=== PATIENT | female | born 1980 | race Caucasian/White ===

== ENCOUNTER 2018-04-25 02:48 | Emergency (ER) | payer BC ==
[~2018-04-25] VITALS: Ht 157.5 cm; Wt 52.2 kg
[2018-04-25] MEDS ORDERED: IV NORMAL SALINE 1000ML BAG 1,000 ML IV SCH (03:15)
[2018-04-25 03:23] LABS: BASO % 0 % (0-3); EOS # 0.4 x10^3/uL (0.0-0.7); EOS % 7 % (0-3); HEMATOCRIT 43.7 % (36.0-47.0); LYMPH # 2.2 x10^3/uL (1.0-4.8); LYMPH % 38 % (24-48); MEAN CORPUSCULAR HEMOGLOBIN 31 pg (25-35); MEAN CORPUSCULAR HGB CONC 34 g/dL (31-37); MEAN CORPUSCULAR VOLUME 91 fL (79-100); MONO # 0.3 x10^3/uL (0.0-1.1); MONO % 6 % (0-9); NEUT # 2.9 x10^3uL (1.8-7.7); NEUT % 50 % (31-73); PLATELET COUNT 189 x10^3/uL (140-400); RED BLOOD COUNT 4.79 x10^6/uL (3.50-5.40); WHITE BLOOD COUNT 5.8 x10^3/uL (4.0-11.0)
[2018-04-25 03:24] LABS: BILIRUBIN,URINE NEGATIVE (NEG); CLARITY,URINE CLEAR; COLOR,URINE YELLOW; NITRITE,URINE NEGATIVE (NEG); PROTEIN,URINE NEGATIVE (NEG-TRACE); UROBILINOGEN,URINE 0.2 mg/dL (0.2 mg/dL)
[2018-04-25 03:30] LABS: BARBITURATES NEG (NEG); BENZODIAZEPINES NEG (NEG); CALCIUM 9.2 mg/dL (8.5-10.1); CANNABINOIDS NEG (NEG); COCAINE NEG (NEG); CREATININE 0.7 mg/dL (0.6-1.0); GFR 93.2; METHADONE NEG (NEG); OPIATES NEG (NEG); PHENCYCLIDINE NEG (NEG); POTASSIUM 3.3 mmol/L (3.5-5.1)
[2018-04-25 03:31] LABS: BACTERIA,URINE 0 /HPF (0-FEW); PROTHROMBIN TIME PATIENT 12.5 SEC (11.7-14.0); SQUAMOUS EPITHELIAL CELL,UR FEW /LPF; WBC,URINE 0 /HPF (0-4)
[2018-04-25 03:32] LABS: AMPHETAMINE/METHAMPHETAMINE NEG (NEG)
[2018-04-25 03:37] LABS: ACETAMIN < 2 mcg/ml (10-30); DIRECT BILIRUBIN 0.1 mg/dL (0.0-0.2); ETHANOL < 10 mg/dL (0-10); SALIC < 2.8 mg/dL (2.8-20.0); TOTAL BILIRUBIN 0.2 mg/dL (0.2-1.0); TOTAL PROTEIN 7.5 g/dL (6.4-8.2)
--- NOTE | 2018-04-25 03:52 | PHYS DOC ---
Past Medical History Past Medical History: Other Additional Past Medical Histor: [place] DISEASE Additional Past Surgical Histo: BREAST IMPLANTS, CHIN AND CHEEK IMPLANTS Alcohol Use: Rarely Drug Use: None Adult General Chief Complaint Chief Complaint: SUICDAL IDEATION HPI HPI Patient is a 37 year old female who presents with suicide attempt. Patient reports taking approximately 15 diphenhydramine tablets 25 mg each at approximately 1 AM this morning. Difficult to get an exact number because patient has an old bottle that at one point contained 600 capsules of diphenhydramine 25 mg. She did this as a suicide attempt. Denies any nausea or vomiting. Reports feeling sleepy.[] Review of Systems Review of Systems Constitutional: Denies fever or chills [] Eyes: Denies change in visual acuity, redness, or eye pain [] HENT: Denies nasal congestion or sore throat [] Respiratory: Denies cough or shortness of breath [] Cardiovascular: No chest pain or palpitations[] GI: Denies abdominal pain, nausea, vomiting, bloody stools or diarrhea [] : Denies dysuria or hematuria [] Musculoskeletal: Denies back pain or joint pain [] Integument: Denies rash or skin lesions [] Neurologic: Denies headache, focal weakness or sensory changes [] Endocrine: Denies polyuria or polydipsia [] All other systems were reviewed and found to be within normal limits, except as documented in this note. Current Medications Current Medications Current Medications Medications (Trade) Dose Ordered Sig/Rafaela Start Time Stop Time Status Last Admin Dose Admin Sodium Chloride 1,000 ml @ 1,000 mls/hr Q1H 04/25/18 03:15 04/25/18 04:14 DC 04/25/18 03:15 1,000 MLS/HR Allergies Allergies Allergies Coded Allergies Type Severity Reaction Last Updated Verified acetaminophen Allergy Unknown 04/25/18 Yes ketorolac Allergy Unknown 04/25/18 Yes propoxyphene Allergy Unknown 04/25/18 Yes Physical Exam Physical Exam Constitutional: Well developed, well nourished, no acute distress, non-toxic appearance. [] HENT: Normocephalic, atraumatic, bilateral external ears normal, oropharynx moist, no oral exudates, nose normal. [] Eyes: PERRLA, slightly dilated pupils, EOMI, conjunctiva normal, no discharge. [ ] Neck: Normal range of motion, no tenderness, supple, no stridor. [] Cardiovascular:Heart rate regular rhythm, no murmur [] Lungs & Thorax: Bilateral breath sounds clear to auscultation [] Abdomen: Bowel sounds normal, soft, no tenderness, no masses, no pulsatile masses. [] Skin: Warm, dry, no erythema, no rash. [] Back: No tenderness, no CVA tenderness. [] Extremities: No tenderness, no cyanosis, no clubbing, ROM intact, no edema. [] Neurologic: Alert and oriented X 3, normal motor function, normal sensory function, no focal deficits noted. [] Psychologic: Affect flat, judgement poor, mood normal. [] Current Patient Data Vital Signs Vital Signs Date Time Temp Pulse Resp B/P (MAP) Pulse Ox O2 Delivery O2 Flow Rate FiO2 04/25/18 08:00 68 127/86 (100) 98 Room Air 04/25/18 06:30 20 04/25/18 03:04 97.8 97.8 Lab Values Laboratory Tests Test 04/25/18 03:00 04/25/18 03:07 White Blood Count 5.8 x10^3/uL (4.0-11.0) Red Blood Count 4.79 x10^6/uL (3.50-5.40) Hemoglobin 15.0 g/dL (12.0-15.5) Hematocrit 43.7 % (36.0-47.0) Mean Corpuscular Volume 91 fL (79-100) Mean Corpuscular Hemoglobin 31 pg (25-35) Mean Corpuscular Hemoglobin Concent 34 g/dL (31-37) Red Cell Distribution Width 16.0 % (11.5-14.5) H Platelet Count 189 x10^3/uL (140-400) Neutrophils (%) (Auto) 50 % (31-73) Lymphocytes (%) (Auto) 38 % (24-48) Monocytes (%) (Auto) 6 % (0-9) Eosinophils (%) (Auto) 7 % (0-3) H Basophils (%) (Auto) 0 % (0-3) Neutrophils # (Auto) 2.9 x10^3uL (1.8-7.7) Lymphocytes # (Auto) 2.2 x10^3/uL (1.0-4.8) Monocytes # (Auto) 0.3 x10^3/uL (0.0-1.1) Eosinophils # (Auto) 0.4 x10^3/uL (0.0-0.7) Basophils # (Auto) 0.0 x10^3/uL (0.0-0.2) Prothrombin Time 12.5 SEC (11.7-14.0) Prothrombin Time INR 1.0 (0.8-1.1) Urine Collection Type Unknown Urine Color Yellow Urine Clarity Clear Urine pH 7.0 Urine Specific [place] <=1.005 Urine Protein Negative mg/dL (NEG-TRACE) Urine Glucose (UA) Negative mg/dL (NEG) Urine Ketones (Stick) Negative mg/dL (NEG) Urine Blood Large (NEG) Urine Nitrite Negative (NEG) Urine Bilirubin Negative (NEG) Urine Urobilinogen Dipstick 0.2 mg/dL (0.2 mg/dL) Urine Leukocyte Esterase Negative (NEG) Urine RBC 1-2 /HPF (0-2) Urine WBC 0 /HPF (0-4) Urine Squamous Epithelial Cells Few /LPF Urine Bacteria 0 /HPF (0-FEW) Sodium Level 140 mmol/L (136-145) Potassium Level 3.3 mmol/L (3.5-5.1) L Chloride Level 105 mmol/L (98-107) Carbon Dioxide Level 32 mmol/L (21-32) Anion Gap 3 (6-14) L Blood Urea Nitrogen 14 mg/dL (7-20) Creatinine 0.7 mg/dL (0.6-1.0) Estimated GFR (Cockcroft-Gault) 93.2 Glucose Level 120 mg/dL (70-99) H Calcium Level 9.2 mg/dL (8.5-10.1) Magnesium Level 2.0 mg/dL (1.8-2.4) Total Bilirubin 0.2 mg/dL (0.2-1.0) Direct Bilirubin 0.1 mg/dL (0.0-0.2) Aspartate Amino Transferase (AST) 14 U/L (15-37) L Alanine Aminotransferase (ALT) 21 U/L (14-59) Alkaline Phosphatase 58 U/L (46-116) Total Protein 7.5 g/dL (6.4-8.2) Albumin 4.0 g/dL (3.4-5.0) Salicylates Level < 2.8 mg/dL (2.8-20.0) L Salicylate Last Dose Date Unk Salicylate Last Dose Time Unk Urine Opiates Screen Neg (NEG) Urine Methadone Screen Neg (NEG) Acetaminophen Level < 2 mcg/ml (10-30) L Acetaminophen Last Dose Date Unk Acetaminophen Last Dose Time Unk Urine Barbiturates Neg (NEG) Urine Phencyclidine Screen Neg (NEG) Urine Amphetamine/Methamphetamine Neg (NEG) Urine Benzodiazepines Screen Neg (NEG) Urine Cocaine Screen Neg (NEG) Urine Cannabinoids Screen Neg (NEG) Ethyl Alcohol Level < 10 mg/dL (0-10) Urine Ethyl Alcohol Neg (NEG) POC Urine HCG, Qualitative Hcg negative (Negative) Laboratory Tests 04/25/18 03:00 Laboratory Tests 04/25/18 03:00 EKG EKG EKG shows a sinus rhythm at 86 bpm, rightward axis, at 97, QTc is prolonged at 492 ms.[] Radiology/Procedures Radiology/Procedures [] Course & Med Decision Making Course & Med Decision Making Pertinent Labs and Imaging studies reviewed. (See chart for details) ED course: Patient arrived by EMS, was placed in our bed, and tolerated exam well. The prolonged QTC was noted and patient was started on initial IV saline with a repeat EKG obtained after the saline was done that showed a narrowing of the QTC to 452 ms. No old EKGs were available for comparison. Poison control was contacted who recommended a 6 hour from time of ingestion time of observation. The PAT team was contacted to provide mental health evaluation. Patient care endorsed to Dr. Grover at 6 AM with Team having seen the patient and determination for ultimate disposition pending. Medical decision making: Patient has voiced suicidal ideation with what appears to be a suicidal attempt with an anticholinergic agent. There is no evidence of secondary toxidrome. Patient's aspirin, Tylenol, and alcohol levels were undetectable.[] godfrey: Crystal from the pat team has seen this patient and has consulted in detail. She's talked with the patient at length. The patient did sign a contract for safety. Apparently the patient had a stressful period of time she' s been working 60 hours a week she is suffering from Lyme's disease she took the Benadryl because she wanted to sleep and she was very stressed out but she now tells me at 9 AM when I reevaluated her that she definitely is not suicidal she wants to live she was just frustrated with her stress level. She does not want to hurt herself now. She'll be going home with her will be watching her carefully for any recurrent signs of suicidal ideation. Dragon Disclaimer Dragon Disclaimer This electronic medical record was generated, in whole or in part, using a voice recognition dictation system. Departure Departure Impression: Primary Impression: Diphenhydramine overdose Additional Impression: Acute stress reaction Disposition: 65 XFER TO PSYCH HOSP/UNIT Referrals: KATHRYN LYA RN [employer] OPERATOR (PCP) Problem Qualifiers Primary Impression: Diphenhydramine overdose Encounter type: initial encounter Injury intent: intentional self-harm Qualified Codes: T45.0X2A - Poisoning by antiallergic and antiemetic drugs, intentional self-harm, initial encounter CLARK KNIGHT DO Apr 25, 2018 03:52 ОЛЕГ GROVER MD Apr 25, 2018 09:05
--- NOTE | 2018-04-25 04:48 | EKG ---
[facility] [address] [place] [address] Test Date: 2018-04-25 Test Time: 04:23:46 Pat Name: DEQUAN HANSON Department: Room: Gender: F [employer]: : 1980 Requested By: CLARK KNIGHT Order Number: [id number] Reading MD: Measurements Intervals [place] Rate: 76 P: 0 WI: 146 QRS: 92 QRSD: 76 T: 64 QT: 398 QTc: 452 Interpretive Statements SINUS RHYTHM RIGHTWARD AXIS INCOMPLETE RIGHT BUNDLE BRANCH BLOCK OTHERWISE NORMAL ECG No previous ECG available for comparison
--- NOTE | 2018-04-25 04:48 | EKG ---
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
[2018-04-25 08:00] VITALS: BP 127/86
== END 2018-04-25 08:54 | disposition home or self-care (01) ==
LOC: ER 02:48
DX: T45.0X2A Poisoning by antiallergic and antiemetic drugs, intentional self-harm, initial encounter (principal); F43.0 Acute stress reaction; Z98.82 Breast implant status; Z88.6 Allergy status to analgesic agent; Z88.8 Allergy status to other drugs, medicaments and biological substances; Y92.89 Other specified places as the place of occurrence of the external cause
CPT/HCPCS: 36415; 80048; 80076; 80307; 80329; 81001; 81025; 83735; 85025; 85610; 93005; 99284; G0480; G6039; J7030